=== PATIENT | male | born 1945 | race Caucasian/White ===

== ENCOUNTER 2017-06-26 16:57 | Emergency (ER) | payer OTHER ==
--- NOTE | 2017-06-26 17:32 | EDPHY ---
H & P Stated Complaint: FREQUENT URINATION/DYSURIA Time Seen by Provider: 06/26/17 17:31 HPI/ROS: HPI: This is a 71-year-old male who presents with Chief Complaint: FREQUENT URINATION Location: Quality: Frequent urination Duration: Since 2:00 a.m. This morning Signs and Symptoms: no fever, no nausea, no vomiting, no hematemesis, no blood in stool, no abdominal bloating, no diarrhea, no back pain, no dysuria, no hematuria, no flank pain, no testicular/groin pain, no indigestion, no chest pain, no shortness of breath Timing: Acute, intermittent episodes Severity: Moderate Context: Patient has a history of BPH presents with complaints of urinating small amounts every 15-20 minutes since around 2:00 a.m. This morning. Patient has a history of BPH and takes Flomax and Avodart. He is followed by Urology but is unable to remember the name. He reports that he sees them yearly. He denies any fever, abdominal pain, bladder distension, back pain, burning with urination. He does complain that the tip of his urethra petty somewhat during urination. Denies any penile discharge/concern for STD. He has no prior history of prostatitis. He reports that this has happened 2-3 times in the past. The treatment at that time was to place a Quinteros catheter and to follow up with Urology. Reports drinking fluids all day. Reports that he was only able to urinate a small amount in triage. Reports that his urine was clear in color. Modifying Factors: See above Comment: ROS: see HPI Constitutional: No fever, no chills, no weight loss Eyes: No blurred vision Respiratory: No shortness of breath, no cough Cardiovascular: No chest pain, no palpitations Gastrointestinal: No nausea, no vomiting, no diarrhea, no hematemesis, no blood in stool Genitourinary: No dysuria, no blood in urine Extremities: No myalgias, no edema Neurologic: No weakness, no numbness Skin: No rashes, no petechiae Hematologic: No bruising, no bleeding MEDICAL/SURGICAL/SOCIAL HISTORY: Medical history: BPH Surgical history: RESECTION ASCENDING COLON Social history:retired. Family history noncontributory. CONSTITUTIONAL: Extremely well-appearing, physically fit, adult white male, appears younger than stated age, awake and alert, no obvious distress HEENT: Atraumatic and normocephalic, PERRL, EOMI. Nares patent; no rhinorrhea; no nasal mucosal edema. Tympanic membranes clear. Oropharynx clear, no exudate and moist pink mucosa. Airway patent. No lymphadenopathy. No meningismus. Cardiovascular: Normal S1/S2, regular rate, regular rhythm, without murmur rub or gallop. PULMONARY/CHEST: Symmetrical and nontender. Clear to auscultation bilaterally. Good air movement. No accessory muscle usage. ABDOMEN: Soft, nondistended, nontender, no rebound, no guarding, no peritoneal signs, no masses or organomegaly. No CVAT. EXTREMITIES: 2/2 pulses, strength 5/5, no deformities, no clubbing, no cyanosis or edema. NEUROLOGICAL: no focal neuro deficits. GCS 15. SKIN: Warm and dry, no erythema. no rash. Good capillary refill. Source: Patient Exam Limitations: No limitations - Personal History Current Tetanus/Diphtheria Vaccine: Unsure - Medical/Surgical History Hx Asthma: No Hx Chronic Respiratory Disease: No Hx Diabetes: No Hx Cardiac Disease: No Hx Renal Disease: No Hx Cirrhosis: No Hx Alcoholism: No Hx HIV/AIDS: No Hx Splenectomy or Spleen Trauma: No Other PMH: Prostate enlarged/RESECTION ASCENDING COLON - Social History Smoking Status: Never smoked Constitutional: Initial Vital Signs Temperature (C) 36.5 C 06/26/17 17:01 Heart Rate 52 L 06/26/17 17:01 Respiratory Rate 16 06/26/17 17:01 Blood Pressure 116/62 06/26/17 17:01 O2 Sat (%) 98 06/26/17 17:01 O2 Delivery Mode Room Air Allergies/Adverse Reactions: No Known Allergies Allergy (Verified 06/26/17 16:57) Home Medications: Medication Instructions Recorded Finasteride 06/22/14 Tamsulosin HCl 06/22/14 Vitamins 06/22/14 Medical Decision Making ED Course/Re-evaluation: Urinalysis shows no signs of infection, no signs of hematuria. Patient was only able to urinate a small amount triage. Bladder scan by nursing at bedside shows 480 mL. Quinteros catheter/leg bag placed. Abdomen soft and nontender. doubt surgical process. This patient was seen under the supervision of my secondary supervising physician. I evaluated care for this patient independently. Discussed this case with Dr. Sloan who did not see the patient. Differential Diagnosis: Differential diagnosis includes but is not limited to benign prostatic hypertrophy, prostatitis, gonococcal or chlamydial infection, urinary retention. - Data Points Laboratory Results: 06/26/17 17:00 Urine Color YELLOW Urine Appearance CLEAR Urine pH 5.0 (5.0-7.5) Ur Specific [place] 1.019 (1.002-1.030) Urine Protein NEGATIVE (NEGATIVE) Urine Ketones NEGATIVE (NEGATIVE) Urine Blood NEGATIVE (NEGATIVE) Urine Nitrate NEGATIVE (NEGATIVE) Urine Bilirubin NEGATIVE (NEGATIVE) Urine Urobilinogen NEGATIVE EU EU (0.2-1.0) Ur Leukocyte Esterase NEGATIVE (NEGATIVE) Urine RBC 1-3 /hpf /hpf (0-3) Urine WBC NONE SEEN /hpf /hpf (0-3) Ur Epithelial Cells TRACE /lpf /lpf (NONE-1+) Urine Mucus TRACE /lpf /lpf (NONE-1+) Urine Glucose NEGATIVE (NEGATIVE) Departure - Departure Disposition: Home, Routine, Self-Care Clinical Impression: Urinary retention due to benign prostatic hyperplasia Condition: Good Instructions: Urinary Retention in Men (ED), Benign Prostatic Hypertrophy (ED) , Quinteros Catheter Placement and Care (ED) Additional Instructions: Please leave the Quinteros catheter in place and follow up with Urology in the next 3-5 days. Please follow Quinteros catheter care and observe precautions. Follow-Up: Please follow-up as noted above. Follow-up sooner if your condition worsens or if you develop any new problems. Call as soon as possible for an appointment. Be clear when you call for an appointment that this is an Emergency Department follow-up. Contact the Emergency Department if you have trouble arranging follow-up care. Our referrals are not based on your insurance network. When time allows, contact your insurance carrier to verify the referral physician is in your plan. If not, get a referral for an in-network contractor. Referrals: ALISA SALDIVAR [Primary Care Provider] - As per Instructions
[2017-06-26 18:37] VITALS: BP 121/68
== END 2017-06-26 18:34 | disposition home or self-care (01) ==
PROC: 0T9B70Z Drainage of Bladder with Drainage Device, Via Natural or Artificial Opening (ICD-10-PCS; principal; 2017-06-26)
DX: R33.9 Retention of urine, unspecified (principal); N40.1 Benign prostatic hyperplasia with lower urinary tract symptoms

== ENCOUNTER 2017-08-09 03:08 | Emergency (ER) | payer OTHER ==
[2017-08-09] MEDS ORDERED: LIDOCAINE 2% JELLY 20 ML (UROJECT) ONE (03:21)
--- NOTE | 2017-08-09 03:28 | EDPHY ---
H & P Stated Complaint: URINARY RETENTION SINCE 1800/TRANSURETHRAL BIOPSY YEST Time Seen by Provider: 08/09/17 03:17 HPI/ROS: Chief Complaint: Can't urinate HPI: 72-year-old male with a history of BPH had a transrectal prostate biopsy done yesterday by Dr. Fox. Patient states that he has not been able to urinate since 6 o'clock yesterday afternoon. He has had some small amount of bleeding from his penis. No fevers or chills. No nausea or vomiting. Is getting increasingly uncomfortable. ROS: 10 point Review of Systems is negative except as noted in the HPI. PMH: BPH Social History: No smoking, no alcohol, no recreational drug use Family History: non-contributory Physical Exam: Gen: Awake, Alert, No Distress HEENT: Nose: no rhinorrhea Eyes: PERRLA, EOMI Mouth: Moist mucosa Neck: Supple, no JVD Chest: nontender, lungs clear to auscultation Heart: S1, S2 normal, no murmur Abd: Soft, distended, palpable bladder, no guarding Back: no CVA tenderness, no midline tenderness Ext: no edema, non-tender Skin: no rash Neuro: CN II-XII intact, Sensation grossly intact, Strength 5/5 in bilateral upper and lower extremities - Personal History Current Tetanus Diphtheria and Acellular Pertussis (TDAP): Unsure - Medical/Surgical History Hx Asthma: No Hx Chronic Respiratory Disease: No Hx Diabetes: No Hx Cardiac Disease: No Hx Renal Disease: No Hx Cirrhosis: No Hx Alcoholism: No Hx HIV/AIDS: No Hx Splenectomy or Spleen Trauma: No Other PMH: Prostate enlarged/RESECTION ASCENDING COLON - Social History Smoking Status: Never smoked Constitutional: Initial Vital Signs Temperature (C) 36.4 C 08/09/17 03:12 Heart Rate 60 08/09/17 03:12 Respiratory Rate 16 08/09/17 03:12 Blood Pressure 123/84 H 08/09/17 03:12 O2 Sat (%) 96 08/09/17 03:12 O2 Delivery Mode Room Air Allergies/Adverse Reactions: No Known Allergies Allergy (Verified 06/26/17 16:57) Home Medications: Medication Instructions Recorded Finasteride 06/22/14 Tamsulosin HCl 06/22/14 Vitamins 06/22/14 Medical Decision Making ED Course/Re-evaluation: Wills caatheter placed by nursing staff. No hematuria. Departure - Departure Disposition: Home, Routine, Self-Care Clinical Impression: Urinary retention Condition: Good Instructions: Urinary Retention in Men (ED), Wills Catheter Placement and Care (ED) Additional Instructions: Follow up with Dr Fox in 2-3 days for re-evaluation and wills catheter removal. Return to the Emergency Department if your catheter stops draining, worsening bleeding, increasing pain, fever,chills, or any other concerns. Referrals: ALISA SALDIVAR [Primary Care Provider] - As per Instructions Byron Fox MD [Medical Doctor] - As per Instructions
[2017-08-09 04:20] VITALS: BP 133/73
== END 2017-08-09 04:20 | disposition home or self-care (01) ==
PROC: 0T9B70Z Drainage of Bladder with Drainage Device, Via Natural or Artificial Opening (ICD-10-PCS; principal; 2017-08-09)
DX: R33.9 Retention of urine, unspecified (principal)

== ENCOUNTER → 2017-08-18 | Outpatient (CLI) | payer OTHER | LOC: FIMAGING 09:50 | PROVIDERS: ATTEND Specialist | DX: Z12.89 Encounter for screening for malignant neoplasm of other sites (principal); C61 Malignant neoplasm of prostate | CPT/HCPCS: 78306; A9503 ==

== ENCOUNTER 2017-09-14 05:28 | Observation (INO) | payer OTHER ==
--- NOTE | 2017-09-13 17:14 | GHP ---
[f rep st] PREOP HISTORY AND PHYSICAL DATE OF ADMISSION: 09/14/2017 ADMISSION DIAGNOSIS: Adenocarcinoma of the prostate. HISTORY OF PRESENT ILLNESS: A 72-year-old gentleman who has had lower urinary tract symptoms in the past and evaluated and treated. Most recently, he had a transrectal ultrasound biopsy of the prostat e via MRI fusion technique and he had a [place] score 7 prostate cancer. He had a MRI PI-RADS 4, and he had a bone scan without metastasis, other than degenerative joint disease being noted, and he is admitted for robotic assisted radical prostatectomy. His PSA preoperatively is 5.26. Prostate volume was 80 g. PSA density was 0.0658. The pathology re vealed a Dayna score 7=3+4 cancer in the right apex, and in the regions of interest on the MRI guid ed biopsy, he had a [place]'s 7, 10% of 1 core site and a Dayna score 6 in another site. There is no report of perineal or perineural invasion as on this biopsy. PAST MEDICAL HISTORY: Significant that he has had colon surgery. He has had a hernia knee surgery, shoulder, and vasectomy. MEDICATIONS: Include finasteride and tamsulosin. ALLERGIES: None. FAMILY HISTORY: Positive for prostate cancer. SOCIAL HISTORY: Alcohol consumption is light. Nonsmoker. He is . REVIEW OF SYSTEMS: Negative cardiac, respiratory, GI, and endocrine. PHYSICAL EXAMINATION: VITAL SIGNS: Stable. CHEST: Clear. HEART: Regular rate and rhythm. ABDOM EN: Normal. No organomegaly, rebound, or guarding. He has had previous abdominal incision for his colectomy. LOWER EXTREMITIES: Normal. IMPRESSION/PLAN: At the present time, he is admitted for robotic assisted radical prostatectomy. He has been informed if he has adhesions and scar that prevent intraabdominal access for the surgical p rocedure, we would convert him to an open radical prostatectomy and pelvic lymph node dissection. /[id number]/MODL
[2017-09-14] MEDS ORDERED: LR 1,000 ML IV ONE (06:01)
[2017-09-14] MEDS ORDERED: BUPIVACAINE 0.5% 30 ML SDV ONE ×2 (06:44→10:36)
[2017-09-14] MEDS ORDERED: ceFAZolin 2 GM/DEXTROSE 100 ML IV ONE (07:00)
--- NOTE | 2017-09-14 07:01 | PDHPUP ---
History & Physical Update H&P update statement: This history and physical update is based on an assessment of the patient which was completed after admission or registration (within 24 hours), but prior to the surgery/procedure. H&P update: H&P reviewed & patient examined, no change in patient's condition since H&P completed
--- NOTE | 2017-09-14 07:10 | PDANEPAE ---
ANE Past Medical History - Cardiovascular History Hx Hypertension: No Hx Arrhythmias: No Hx Chest Pain: No Hx Coronary Artery / Peripheral Vascular Disease: No Hx CHF / Valvular Disease: No Hx Palpitations: No - Pulmonary History Hx COPD: No Hx Asthma/Reactive Airway Disease: No Hx Recent Upper Respiratory Infection: No Hx Oxygen in Use at Home: No Hx Sleep Apnea: No Sleep Apnea Screening Result - Last Documented: Negative - Neurologic History Hx Cerebrovascular Accident: No Hx Seizures: No Hx Dementia: No - Endocrine History Hx Diabetes: No - Renal History Hx Renal Disorders: No Renal History Comment: BPH - Liver History Hx Hepatic Disorders: No - Neurological & Psychiatric Hx Hx Neurological and Psychiatric Disorders: No - Cancer History Hx Cancer: No - Congenital Disorder History Hx Congenital Disorders: No - GI History Hx Gastrointestinal Disorders: No - Other Health History Other Health History: none - Chronic Pain History Chronic Pain: Yes (LEFT SHOULDER) - Surgical History Prior Surgeries: biopsy ANE Review of Systems Review of Systems: - Exercise capacity METS (RN): 5 METS ANE Patient History - Allergies Allergies/Adverse Reactions: No Known Allergies Allergy (Verified 09/05/17 15:30) - Home Medications Home Medications: Finasteride 06/22/14 [Last Taken 09/13/17] Tamsulosin HCl 06/22/14 [Last Taken 09/12/17] Cholecalciferol (Vitamin D3) 09/05/17 [Last Taken 09/13/17] - NPO status NPO Since - Liquids (Date): 09/13/17 NPO Since - Liquids (Time): 18:00 NPO Since - Solids (Date): 09/13/17 NPO Since - Solids (Time): 12:00 - Smoking Hx Smoking Status: Never smoked - Family Anes Hx Family Hx Anesthesia Complications: none ANE Labs/Vital Signs - Vital Signs Blood Pressure: 124/74 Heart Rate: 43 Respiratory Rate: 14 O2 Sat (%): 98 Height: 180.34 cm Weight: 74.843 kg ANE Physical Exam - Airway Neck exam: FROM Mallampati Score: Class 1 Mouth exam: normal dental/mouth exam - Pulmonary Pulmonary: no respiratory distress - Cardiovascular Cardiovascular: regular rate and rhythym - ASA Status ASA Status: I ANE Anesthesia Plan Anesthesia Plan: general endotracheal anesthesia
[2017-09-14] MEDS ORDERED: DEXAMETHASONE 4 MG/ML VIAL ONE ×2 (07:12)
[2017-09-14] MEDS ORDERED: PROPOFOL 200 MG/20 ML VIAL ONE (07:12)
[2017-09-14] MEDS ORDERED: ROCURONIUM 100 MG/10 ML VIAL ONE (07:13)
[2017-09-14] MEDS ORDERED: LIDOCAINE 2% 100 MG/5 ML SYR ONE (07:13)
[2017-09-14] MEDS ORDERED: METOCLOPRAMIDE 10 MG/2 ML VIAL ONE (07:13)
[2017-09-14] MEDS ORDERED: ePHEDrine SULFATE 25 MG/5 ML SYR ONE (07:52)
[2017-09-14] MEDS ORDERED: THROMBIN(HUM PLAS)/FIBRINOG/CA 2 ML VIAL TP ONE ×3 (09:27→09:45)
[2017-09-14] MEDS ORDERED: SUGAMMADEX SODIUM 200 MG/2 ML VIAL IVP ONE (09:57)
[2017-09-14] MEDS ORDERED: GLYCOPYRROLATE 0.2 MG/1 ML VIAL ONE ×2 (10:46)
[2017-09-14] MEDS ORDERED: ZOLPIDEM TARTRATE 5 MG TAB PO PRN (11:01)
[2017-09-14] MEDS ORDERED: ONDANSETRON 4 MG/2 ML VIAL IVP PRN (11:01)
[2017-09-14] MEDS ORDERED: oxyCODONE IR 5 MG TAB PO PRN (11:01)
[2017-09-14] MEDS ORDERED: ONDANSETRON DISINTEGRATING 4 MG TAB PO PRN (11:01)
[2017-09-14] MEDS ORDERED: ALBUTEROL 3 ML DEYVIAL IH PRN (11:06)
[2017-09-14] MEDS ORDERED: NALOXONE HCL 0.4 MG/ML INJ IVP PRN (11:06)
[2017-09-14] MEDS ORDERED: HYDROmorphONE/DILAUDID 6 MG/30 ML PCA IV PRN (11:06)
--- NOTE | 2017-09-14 11:08 | POSTOPPROG ---
Post Op Note Date of Operation: 09/14/17 Surgeon: Byron Fox Machine Cementer And Folder: Damaris Anesthesiologist: Eber Anesthesia: GET(General Endotracheal) Pre-op Diagnosis: prostate cancer Procedure: RA-RRP and PLND Inf/Abcess present in the surg proc area at time of surgery?: No EBL: 50-100 Drains: Beni Means, Other (wills) Specimen(s): sent, dictated
--- NOTE | 2017-09-14 11:16 | POSTANESTH ---
Post Anesthetic Evaluation Cardiovascular Status: Similar to Pre-Op Cond Respiratory Status: Similar to Pre-op Cond. Level of Consciousness/Mental Status: Mildly Sleepy, Arousable Pain Control: Adequate, Prn Tx Ordered Nausea/Vomiting Control: Adequate, Prn Tx Ordered Complications Possibly Related to Anesthesia: None Noted
[2017-09-14] MEDS ORDERED: fentaNYL 100 MCG/2 ML INJ ONE ×2 (11:20→11:59)
[2017-09-14] MEDS: fentaNYL 100 MCG/2 ML INJ IVP PRN ×3 (11:23→12:05)
--- NOTE | 2017-09-14 11:27 | GOP ---
[f rep st] OPERATIVE REPORT DATE OF OPERATION: SURGEON: Byron Fox MD CREPE SOLE WIRE BRUSHER: Damaris. ANESTHESIA: General anesthesia. ANESTHESIOLOGIST: Eber. PREOPERATIVE DIAGNOSIS: Adenocarcinoma of the prostate. POSTOPERATIVE DIAGNOSIS: Adenocarcinoma of the prostate. PROCEDURE PERFORMED: Robotic assisted radical prostatectomy with pelvic lymph node dissection. FINDINGS: SPECIMENS: Lymph nodes, right and left, and prostate seminal vesicle ampulla vas deferens. He will be admitted for postoperative care. I will discuss the findings with his and final path ology will be at a later date. ESTIMATED BLOOD LOSS: Per anesthesia. DESCRIPTION OF PROCEDURE: After undergoing appropriate anesthesia and prepped and draped in the norm al sterile fashion in the position appropriate for robotic pelvic surgery, I placed an 8 mm port, aft er insufflating his abdomen, in the right lower quadrant because of his prior abdominal surgery and t hen visualized. He had no significant adhesions that would prevent his surgery. So at that point, w ith the abdomen inflated, the camera port, a 12 mm, was placed in the supraumbilical site and then th e credentialing assistant port on the left side, a 12 mm, and then 3 robotic 8 mm ports were placed along the belt line. Then I was able to bring the bowel out of the pelvis and identified the vas deferens and they coursed over the pelvic brim and dissected those down to where I could identify the ampulla vas defer ens and vas deferens. The vas deferens were divided with electrocautery and the ampulla seminal vesi cles were dissected out and hemostasis provided with Hem-o-Iftikhar. Mobilized the seminal vesicle and va s deferens and developed a plane between the prostate and the rectum. At that point, dropped the fred dder down in the normal fashion occluding the umbilical arteries and the urachus with elec trocautery. Then the endopelvic fascia was incised on the right and left sides and identified the de ep dorsal vein complex, which was ligated with an 0 Vicryl and then focused our attention to the blad eugenia neck and divided that. He had a large prostate that was impinging upon the bladder and it protru ded up more on the left side than the right side. This was able to open the anterior bladder and the n dissect the bladder off the prostate and made care to make sure there was no prostatic adenoma or p rostatic tissue remaining. After dissecting and going between the base of the prostate and the base of the bladder to the identify the ampulla vas deferens seminal vesicles. They were brought anterior and then tried to manage his vasculature with Hem-o-Loks and for some reason the Hem-o-Iftikhar wire woul d not engage most of the device, so I used the tissue sealing device to dissect out the left lateral aspect of the prostate and then the right lateral aspect. I was able to preserve the right neurovasc ular bundle as it coursed lateral to the urethra. I then divided the anterior apex of the prostate a nd the posterior part and I reinforced the deep dorsal vein ligature with 0 Vicryl so it was hemostat ic. I then refashioned the bladder neck because of its patulousness with a 3-0 Vicryl on each the ri ght and left sides and was able to do the anastomosis with a 4-0 running Monocryl and it was bridged with a 20-Croatian catheter, 20 cc balloon inflated, and it irrigated clear and it was watertight. He had minimal lymph node tissue on the left side, but tissue between the bifurcation of the iliac vesse ls to the obturator nerve and the femoral canal were dissected out and sent for specimen. The same d issection on the left side. Hemostasis provided with Hem-o-Loks and electrocautery. At that point, we used tissue sealant glue for the anastomosis and irrigated again and that was clear on irrigation and it was noted to be watertight. Because of the size of the prostate, had to extend the abdominal incision lateral right to left so I could remove it in the bag and then closed that abdominal incisio n with 0 Vicryl and then the tissue closure device was used on the credentialing assistant port of an 0 Vicryl and then 4-0 Monocryl was used to approximate the skin edges intradermal. I used Marcaine to provide loc al incision blocks. COMPLICATIONS: None. /[id number]/MODL
[2017-09-14] MEDS: D5W 1/2 NS 1,000 ML IV SCH ×2 (13:09→22:43)
[2017-09-15 04:31] LABS: PLATELET COUNT 152 10^3/uL (150-400)
[2017-09-15] MEDS: ACETAMINOPHEN 325 MG TAB PO PRN ×2 (05:27→20:24)
--- NOTE | 2017-09-15 10:35 | SOAPPROG ---
SOAP Progress Note Assessment/Plan: Assessment: Prostate cancer Acute POD# 1, no problems, consider dc later today , path pending Plan: as noted 09/15/17 10:34 Subjective: doing well Objective: Vital Signs Temp Pulse Resp BP Pulse Ox 36.5 C 43 L 15 118/62 98 09/15/17 08:35 09/15/17 08:38 09/15/17 08:35 09/15/17 08:38 09/15/17 08:35 Laboratory Results 09/15/17 04:12 09/15/17 04:12 09/14/17 09/15/17 09/16/17 05:59 05:59 05:59 Intake Total 3116 500 Output Total 2070 45 Balance 1046 455 Physical Exam - Physical Exam General Appearance: alert Respiratory: No respiratory distress Abdomen: soft Back: No CVA tenderness Skin: warm/dry Neuro/Psych: alert, oriented x 3 ICD10 Worksheet Patient Problems: Problems Problem Status Onset Prostate cancer Acute - ICD10 Problem Qualifiers (1) Prostate cancer
--- NOTE | 2017-09-15 13:19 | ASMTCMCOM ---
CM Note CM Note Notes: Patient is POD #1 radical prostatectomy with pelvic lymph node dissection. Pathology is pending. Patient lives independently with his . No therapies ordered, and no discharge needs anticipated. Current CM Discharge plan: home independent Date Signed: 09/15/2017 01:18 PM Electronically Signed By:Arcelia Anna RN
[2017-09-16 08:36] VITALS: BP 136/73
--- NOTE | 2017-09-16 10:44 | SOAPPROG ---
SOAP Progress Note Assessment/Plan: Assessment: Prostate cancer Acute POD# 2, dc later today, path pending, negative nodes Plan: as noted 09/16/17 10:43 Subjective: ok and ready for DC Objective: Vital Signs Temp Pulse Resp BP Pulse Ox 36.7 C 45 L 16 136/73 H 96 09/16/17 08:35 09/16/17 08:35 09/16/17 08:35 09/16/17 08:35 09/16/17 08:35 Laboratory Results 09/15/17 04:12 09/15/17 04:12 09/15/17 09/16/17 09/17/17 05:59 05:59 05:59 Intake Total 3116 1250 Output Total 5044 2644 40 Balance 1046 -2075 -40 Physical Exam - Physical Exam General Appearance: alert Respiratory: No respiratory distress Abdomen: non-tender Back: No CVA tenderness Extremities: No calf tenderness Neuro/Psych: alert, oriented x 3 ICD10 Worksheet Patient Problems: Problems Problem Status Onset Prostate cancer Acute - ICD10 Problem Qualifiers (1) Prostate cancer
--- NOTE | 2017-09-16 11:13 | GDS ---
[f rep st] DISCHARGE SUMMARY ADMISSION DIAGNOSIS: Adenocarcinoma of the prostate. DISCHARGE DIAGNOSIS: Adenocarcinoma of the prostate. PROCEDURE DURING HOSPITALIZATION: Robotic-assisted radical prostatectomy and pelvic lymph node disse ction. HOSPITAL COURSE: The gentleman was an a.m. admission, had the above procedure performed, postop day 2 he is discharged home. Pathology on the lymph nodes are negative. Final path on the prostate is p ending. ANITA drain is being removed, and he has had no postoperative complications. Postoperative dis cussed DVT prevention at the present time with conversation with the patient's spouse and patient and myself. I elected not to place him on anticoagulation, and if he has any suggestion of DVT, chest p ain, shortness of breath he will be evaluated urgently in the emergency room. But, at the present ti me, there is no suggestion of a condition of that nature at present or pending. /[id number]/MODL
--- NOTE | 2017-09-16 11:47 | ASDISCHSUM ---
Discharge Information Plan Status:Home with No Needs Medically Cleared to Leave:09/16/2017 Discharge Date:09/16/2017 CM D/C Disposition:Home, Routine, Self-Care ADT D/C Disposition:Home, Routine, Self-Care Projected Discharge Date:09/16/2017 Transportation at D/C:Family Discharge Delay Reason: Follow-Up Date:09/16/2017 Discharge Slot: Final Diagnosis: Placement Information Patient Contact Information Contact Name:WANDER Relationship: Address:[address] [address] City:[place] Alternate Phone: [facility]/Zip Code:[place] [address] Email: Financial Information Financial Class:Medicare Primary Plan Desc:MEDICARE OUTPATIENT Primary Plan Number:[id number] Secondary [facility] Secondary Plan Number:[id number] Assessment Information LACE LACE Length of stay for Answers: 1 day current admission Acuity / Level of Answers: No Care: Did the patient have an inpatient admission? Comorbidities - select Answers: Any tumor (including all that apply lymphoma or leukemia) Opioid dependence / Chronic pain # of Emergency department Answers: 1-2 visits in the last 6 months Score: 8 Date Signed: 09/16/2017 11:46 AM Electronically Signed By:BELKIS Webb [facility] CM Progress Note CM Note CM Note Notes: Patient is POD #1 radical prostatectomy with pelvic lymph node dissection. Pathology is pending. Patient lives independently with his . No therapies ordered, and no discharge needs anticipated. Current CM Discharge plan: home independent Date Signed: 09/15/2017 01:18 PM Electronically Signed By:Arcelia Anna RN Case Management Discharge Plan Note Case Management Discharge Discharge Order Complete? Answers: Yes Patient to Obtain Answers: via Family Medications Transportation Arranged Answers: Family/Friends Family Notified Answers: Yes Discharge Comments Notes: Pt has been medically cleared and will discharge home today with his family and no CM needs. Date Signed: 09/16/2017 11:44 AM Electronically Signed By:BELKIS Webb Intervention Information Intervention Type:TYSHAWN-Signed Date of Service:09/14/2017 03:44 PM Patient Type:Observation Staff Member:Laila Garcia Hours: Discipline: Severity: Comment:
== END 2017-09-16 12:39 | disposition home or self-care (01) ==
LOC: INTOOBSV 05:28 → F1N 05:28
PROVIDERS: ADMIT Specialist; ATTEND Specialist
PROC: 8E0W4CZ Robotic Assisted Procedure of Trunk Region, Percutaneous Endoscopic Approach (ICD-10-PCS; principal; 2017-09-14 07:15)
PROC: 07TC4ZZ Resection of Pelvis Lymphatic, Percutaneous Endoscopic Approach (ICD-10-PCS; principal; 2017-09-14 07:15)
PROC: 0VT04ZZ Resection of Prostate, Percutaneous Endoscopic Approach (ICD-10-PCS; principal; 2017-09-14 07:15)
DX: C61 Malignant neoplasm of prostate (principal)
CPT/HCPCS: 55845; 88305; 88309; J0690; J1100; J1170; J2001; J2270; J2704; J2765; J3010